=== PATIENT | male | born 2000 | race Caucasian/White ===

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

== ENCOUNTER 2018-06-19 08:21 | Day surgery (SDC) | payer MEDICAID ==
[2018-06-19] MEDS: Lactated Ringers 1,000 ML IV SCH (09:09)
[2018-06-19] MEDS ORDERED: fentaNYL 100 MCG/2 ML SDV ONE (10:50)
[2018-06-19] MEDS ORDERED: Midazolam 1 MG/ML 2 ML SDV ONE (10:50)
[2018-06-19] MEDS ORDERED: Propofol 200 MG/20 ML SDV ONE (10:50)
--- NOTE | 2018-06-19 13:28 | OR ---
DATE OF PROCEDURE: 06/19/2018 PREOPERATIVE DIAGNOSIS: Hematemesis. POSTOPERATIVE DIAGNOSES: 1. Hematemesis. 2. Gastritis. PROCEDURE PERFORMED: Esophagogastroduodenoscopy with antral biopsies for CLOtest and for pathology to look for Helicobacter pylori. ANESTHESIA: IV anesthesia with monitored anesthesia care. INDICATION: This 17-year-old white male is here for upper endoscopy because of abdominal pain. I counseled him for the procedure, including the risks and alternatives, and he gave his informed consent to proceed. DESCRIPTION OF PROCEDURE: The patient was placed in the left lateral decubitus position. IV anesthesia was administered by the Anesthesia Service. Time-out was held. The flexible video Olympus upper endoscope was passed through his mouth, down his esophagus, and into his stomach. The scope was easily passed through the pylorus and into the duodenum reaching its third portion. The scope was then slowly withdrawn examining the mucosa throughout. The duodenal mucosa appeared unremarkable, possibly some very mild inflammation. The scope was brought up through the pylorus. There was inflammation in the antrum going back up into the stomach, consistent with mild gastritis. We obtained biopsies of the antrum for CLOtest and for pathology to look for Helicobacter pylori. The scope was retroflexed. The most proximal stomach appeared unremarkable. The scope was straightened and brought up through the GE junction. This appeared unremarkable. The scope was then brought up through the unremarkable-appearing esophagus and was removed. He tolerated the procedure well. Kenrick Griggs MD /[id number]
== END 2018-06-19 12:26 | disposition home or self-care (01) ==
LOC: JP.SDS 08:21
PROVIDERS: ATTEND Surgery
DX: K92.0 Hematemesis (principal); K29.70 Gastritis, unspecified, without bleeding; Z91.048 Other nonmedicinal substance allergy status
CPT/HCPCS: 87081; 88305; J2250; J2704; J3010; J7120